=== PATIENT | female | born 2000 | race Caucasian/White ===

== ENCOUNTER 2020-09-10 08:56 | Outpatient (CLI) | payer BC, SELFPAY ==
--- NOTE | 2020-09-12 09:25 | WPDNEUROLOGY ---
Neurology EEG Report General Information Date of Study: 09/10/20 TEST eeg DIAGNOSIS Facial spasms CONDITION OF RECORDING awake drowsy and sleep EEG NUMBER [id number] CLINICAL HISTORY patient reported she has episodes of throat becoming numb, moves up to her mouth and then right side of the mouth starts twitching EEG DESCRIPTION basic resting occipital frequency consists of large amount of well-organized low to medium voltage 8 to 10 hertz per second alpha admixed with low-voltage 15 to 18 hertz per second beta. Low-voltage beta activity seen diffusely admixed with waxing and waning posterior alpha rhythm during drowsiness. Bilateral symmetrical sleep activity seen during sleep. Hyperventilation not done. Photic stimulation produced normal drive non paroxysmal, nonfocal and nonlateralizing IMPRESSION normal EEG
== END 2020-09-10 08:57 | disposition home or self-care (01) ==
PROVIDERS: PCP Physician Assistant; Visit Provider Physician Assistant
DX: G51.39 Clonic hemifacial spasm, unspecified (principal)
CPT/HCPCS: 95816